=== PATIENT | female | born 1955 | race Caucasian/White ===

== ENCOUNTER 2019-03-16 14:58 | Emergency (ER) | payer BC ==
--- NOTE | 2019-03-16 15:46 | EDM.PDOC ---
ED HPI GENERAL MEDICAL PROBLEM - General Chief Complaint: Laceration Stated Complaint: L ARIELBROW LAC/WRIST INJRY Time Seen by Provider: 03/16/19 15:18 Source of Information: Reports: Patient, RN Notes Reviewed History Limitations: Reports: No Limitations - History of Present Illness INITIAL COMMENTS - FREE TEXT/NARRATIVE: Patient is a 63-year-old female who presents to the ED for evaluation of a head and wrist injury. The patient notes around 15 minutes prior to arrival to the ED, she was at a retail store picking up some parts and was loading stuff into her vehicle. She states that she was not watching where she was walking, and ended up stumbling over the cement parking stop in the parking lot. She states that she fell down and hit her head really hard on the left side of her face. She has a small scrape to the distal portion of her left eyebrow, and her left wrist hurts, and has a small abrasion to the left knee as well. The patient denies any loss of consciousness, but noted that she did have a headache at first but this is since subsided. She was able to get up by herself and drove herself to the ER. She does take 2 baby aspirin daily as advised by her primary care doctor. She is able to move her left wrist in all range of motion , and she notes that she has a history of carpal tunnel, but notes that the pain feels different than her normal usual pain that she experiences a regular basis. Left Knee Pain Score (Numeric/FACES): 3 Left Hand Pain Score (Numeric/FACES): 3 Left Eye Pain Score (Numeric/FACES): 1 - Related Data Allergies Allergy/AdvReac Type Severity Reaction Status Date / Time amoxicillin Allergy Rash Verified 03/16/19 15:10 morphine Allergy Nausea and Verified 03/16/19 15:10 Vomiting Home Meds: Home Meds . [No Known Home Meds] 03/16/19 [History] Aspirin [Halfprin] 162 mg PO DAILY 03/16/19 [History] Montelukast Sodium [Singulair] 10 mg PO DAILY 03/16/19 [History] Simvastatin [Zocor] 0 mg PO DAILY 03/16/19 [History] Past Medical History Cardiovascular History: Reports: High Cholesterol, Hypertension - Past Surgical History HEENT Surgical History: Reports: Adenoidectomy, Tonsillectomy Cardiovascular Surgical History: Reports: Other (See Below) Other Cardiovascular Surgeries/Procedures: angiogram GI Surgical History: Reports: Cholecystectomy Musculoskeletal Surgical History: Reports: Carpal Tunnel Social & Family History - Tobacco Use Smoking Status *Q: Never Smoker - Caffeine Use Caffeine Use: Reports: Coffee - Recreational Drug Use Recreational Drug Use: No ED ROS GENERAL - Review of Systems Review Of Systems: See Below Constitutional: Reports: No Symptoms HEENT: Denies: Vertigo, Vision Change Respiratory: Reports: No Symptoms Cardiovascular: Reports: No Symptoms, Palpitations Endocrine: Reports: No Symptoms GI/Abdominal: Reports: No Symptoms : Reports: No Symptoms Musculoskeletal: Reports: No Symptoms Skin: Reports: Wound (superificial wound to L lateral eyebrow) Neurological: Denies: Confusion, Dizziness, Headache, Syncope, Difficulty Walking Psychiatric: Reports: No Symptoms Hematologic/Lymphatic: Reports: No Symptoms Immunologic: Reports: No Symptoms ED EXAM, SKIN/RASH Exam: See Below Exam Limited By: No Limitations General Appearance: Alert, WD/WN, No Apparent Distress Eye Exam: Bilateral Eye: EOMI, Normal Inspection, PERRL Ears: Normal External Exam, Normal TMs Nose: Normal Inspection Throat/Mouth: Normal Inspection, Normal Lips, Normal Teeth, Normal Gums, Normal Oropharynx, Normal Voice, No Airway Compromise Head: Normocephalic, Other (wound to L lateral eyebrow) Neck: Normal Inspection, Supple, Non-Tender, Full Range of Motion Respiratory/Chest: No Respiratory Distress, Lungs Clear, Normal Breath Sounds, No Accessory Muscle Use, Chest Non-Tender Cardiovascular: Normal Peripheral Pulses, Regular Rate, Rhythm, No Murmur Peripheral Pulses: 3+: Radial (L), Radial (R) Extremities: Normal Inspection, Normal Range of Motion, Normal Capillary Refill , Other (pain with opposition of left thumb ) Neurological: Alert, Oriented, Normal Cognition, Normal Gait, No Motor/Sensory Deficits Psychiatric: Normal Affect, Normal Mood Skin: Warm, Dry, Normal Color, No Rash, Wound/Incision (to left lateral eyebrow : small 0.5cm, stellate in nature and superficial. to L Knee: small skin abrasion noted Left lateral knee. no active bleeding.) Course - Vital Signs Last Recorded V/S: Last Vital Signs Temp 98.0 F 03/16/19 15:15 Pulse 72 03/16/19 15:15 Resp 20 03/16/19 15:15 BP 145/88 H 03/16/19 15:15 Pulse Ox 99 03/16/19 15:15 - Orders/Labs/Meds Orders: Active Orders 24 hr Category Date Time Status Head wo Cont [CT] Stat Exams 03/16/19 15:38 Ordered Wrist Comp Min 3V Lt [CR] Stat Exams 03/16/19 15:37 Ordered - Re-Assessments/Exams Free Text/Narrative Re-Assessment/Exam: 03/16/19 15:50 Patient presents to the ED for the evaluation of a head injury and left wrist injury. Due to the patient being on baby aspirin and her stating that she had quite a hard fall I have ordered a head CT for further evaluation, and a left wrist x-ray to make sure that her left wrist does not have a fracture. 03/16/19 16:17 Patient's left wrist x-ray does not demonstrate any acute fracture or abnormality at this time, this was reviewed by myself and Dr. Stephenson. The patient's head CT is read as no acute intracranial abnormalities at this time. There is no evidence of any head bleed. This will be relayed to the patient with other general recommendations. Departure - Departure Time of Disposition: 16:18 Disposition: Home, Self-Care 01 Condition: Fair Clinical Impression: Left wrist pain Head injury Qualifiers: Encounter type: initial encounter Qualified Code(s): S09.90XA - Unspecified injury of head, initial encounter - Discharge Information *PRESCRIPTION DRUG MONITORING PROGRAM REVIEWED*: No *COPY OF PRESCRIPTION DRUG MONITORING REPORT IN PATIENT ISAAC: No Instructions: Head Injury, Adult, [id number], Stitches, Donna, or Adhesive Wound Closure, [id number] Referrals: Tramaine Lerma MD [Primary Care Provider] - Forms: ED Department Discharge Additional Instructions: You have been evaluated in the ED today for your head injury and left wrist injury. There is no sign of any acute bony abnormality or fracture of your left wrist, and there was no evidence of any sort of head bleed on your head CT. You will likely feel sore for the next few days, you may take Tylenol 500 mg or 6 hours as needed for pain relief. Please keep your wounds clean and dry. Return to the ED if your symptoms change or worsen. - My Orders Last 24 Hours: My Active Orders 03/16/19 15:37 Wrist Comp Min 3V Lt [CR] Stat 03/16/19 15:38 Head wo Cont [CT] Stat - Assessment/Plan Last 24 Hours: My Active Orders 03/16/19 15:37 Wrist Comp Min 3V Lt [CR] Stat 03/16/19 15:38 Head wo Cont [CT] Stat
--- NOTE | 2019-03-18 19:35 | CR ---
Left wrist: Four views of the left wrist were obtained. Comparison: No prior wrist exam. Mild degenerative change is noted within the CMC joint of the thumb. Joint spaces within the wrist are otherwise preserved. No acute fracture, dislocation or other bony abnormality is identified. Impression: 1. Mild degenerative change as noted above. 2. Nothing acute is appreciated on left wrist exam. Diagnostic code #2
--- NOTE | 2019-03-18 19:35 | CT ---
Head CT Technique: Multiple axial sections through the brain were obtained. Intravenous contrast was not utilized. Comparison: No prior intracranial imaging is available. Findings: Ventricles along with basal cisterns and sulci over the convexities are within normal limits for the patient's age. No abnormal parenchymal densities are seen. No evidence of intracranial hemorrhage. No midline shift or mass effect is seen. Bone window settings were reviewed which show no acute calvarial abnormality. Visualized sinuses are clear. Impression: 1. Nothing acute is appreciated on noncontrast head CT exam. Diagnostic code #1 I agree with preliminary report from [facility], finalized on 03/16/19, 5:10 PM Central Time
== END 2019-03-16 16:38 | disposition home or self-care (01) ==
LOC: JD.ED 14:58
DX: S01.112A Laceration without foreign body of left eyelid and periocular area, initial encounter (principal); S80.212A Abrasion, left knee, initial encounter; M25.532 Pain in left wrist; I10 Essential (primary) hypertension; E78.00 Pure hypercholesterolemia, unspecified; Z88.1 Allergy status to other antibiotic agents; Z88.5 Allergy status to narcotic agent; W22.8XXA Striking against or struck by other objects, initial encounter; Y92.481 Parking lot as the place of occurrence of the external cause
CPT/HCPCS: 12011; 70450; 70450-26; 73110-26-LT; 73110-LT; 99283; 99283-25

== ENCOUNTER 2021-06-27 13:17 | Emergency (ER) | payer MEDICARE, BC ==
--- NOTE | 2021-06-27 13:35 | EDM.PDOC ---
ED HPI GENERAL MEDICAL PROBLEM - General Chief Complaint: Respiratory Problem Stated Complaint: COVID SX Time Seen by Provider: 06/27/21 13:31 - History of Present Illness INITIAL COMMENTS - FREE TEXT/NARRATIVE: 66-year-old female presents the emergency room with Covid symptoms. Patient said several day history of just feeling really poor achy all over lumbar chest like pressure and shortness of breath. This is been going on for several days. Patient has not had the Covid vaccine. She is got a significant past medical history of needing a heart work-up for dyspnea on exertion however with the onset of Covid a little over a year and a half ago she never got this done. She is treated for hypertension hyperlipidemia no history of diabetes she is got a significant 2 pack a day smoking history however she quit in 2004. She denies chest pressure at this time just has a vague ache but this seems to be all over. She is noted to be hypoxic with O2 saturation as low as 87% on room air upon admission to the emergency room. Headache Pain Score (Numeric/FACES): 10 - Related Data Allergies Allergy/AdvReac Type Severity Reaction Status Date / Time amoxicillin Allergy Severe Rash Verified 06/27/21 17:46 morphine Allergy Severe Nausea and Verified 06/27/21 17:46 Vomiting Home Meds: Home Meds Aspirin [Halfprin] 162 mg PO DAILY 03/16/19 [History] Montelukast Sodium [Singulair] 10 mg PO DAILY 03/16/19 [History] Albuterol Sulfate [Albuterol Sulfate HFA] 8.5 gm INH Q4H #1 ea 06/27/21 [Rx] Losartan/Hydrochlorothiazide [Losartan-HCTZ 100-25 MG] 1 each PO DAILY 06/27/21 [History] atorvaSTATin [Lipitor] 40 mg PO DAILY 06/27/21 [History] dexAMETHasone [Dexamethasone] 6 mg PO DAILY #14 tablet 06/27/21 [Rx] Past Medical History Cardiovascular History: Reports: High Cholesterol, Hypertension - Past Surgical History HEENT Surgical History: Reports: Adenoidectomy, Tonsillectomy Cardiovascular Surgical History: Reports: Other (See Below) Other Cardiovascular Surgeries/Procedures: angiogram GI Surgical History: Reports: Cholecystectomy Musculoskeletal Surgical History: Reports: Carpal Tunnel Social & Family History - Caffeine Use Caffeine Use: Reports: Coffee ED ROS GENERAL - Review of Systems Review Of Systems: See Below Constitutional: Reports: Fever, Chills, Malaise, Weakness, Fatigue. Denies: Night Sweats HEENT: Reports: Rhinitis Respiratory: Reports: Shortness of Breath, Cough. Denies: Pleuritic Chest Pain Cardiovascular: Reports: Other (Little bit of pressure just does not feel right). Denies: Chest Pain GI/Abdominal: Reports: No Symptoms : Reports: No Symptoms Musculoskeletal: Reports: Other (Achy all over) Skin: Reports: No Symptoms ED EXAM, GENERAL - Physical Exam Exam: See Below Exam Limited By: No Limitations General Appearance: Alert, No Apparent Distress, Other (O2 saturation 88% when I went into her room it would drop a little bit with talking) Eye Exam: Bilateral Eye: Normal Inspection Ears: Normal External Exam, Normal Canal, Hearing Grossly Normal, Normal TMs Nose: Normal Inspection, Normal Mucosa, No Blood Throat/Mouth: Normal Inspection, Normal Lips, Normal Teeth, Normal Gums, Normal Oropharynx, Normal Voice, No Airway Compromise Head: Atraumatic, Normocephalic Neck: Normal Inspection, Supple, Non-Tender, Full Range of Motion. No: Lymphadenopathy (L), Lymphadenopathy (R) Respiratory/Chest: No Respiratory Distress, Lungs Clear Cardiovascular: Regular Rate, Rhythm, No Edema, No Murmur GI/Abdominal: Normal Bowel Sounds, Soft, Non-Tender #1 Interpretation EKG Date: 06/27/21 Rhythm: NSR [place]: Normal P-Wave: Present QRS: LBBB ST-T: Other (Normal disconcordant changes associated with left bundle branch block) QT: Normal Comparison: NA - No Prior EKG EKG Interpretation Comments: Abnormal EKG Course - Vital Signs Last Recorded V/S: Last Vital Signs Temp 37.2 C 06/27/21 13:45 Pulse 87 06/27/21 13:45 Resp 20 06/27/21 13:45 BP 127/98 H 06/27/21 13:45 Pulse Ox 98 06/27/21 15:10 - Orders/Labs/Meds Orders: Active Orders 24 hr Category Date Time Status IS (RT) [RT Incentive Spirometry] [RC] Q1HWA Care 06/27/21 17:57 Active RT Chest Physiotherapy [RC] ASDIRECTED Care 06/27/21 17:57 Active RT Post Treatment Assessment [RC] Click to Edit Care 06/27/21 17:58 Active RT Pre-Treatment Assessment [RC] Click to Edit Care 06/27/21 17:58 Active Chest 1V Frontal [CR] Stat Exams 06/27/21 14:16 Taken Albuterol [Proventil HFA] Med 06/27/21 18:00 Active See Dose Instructions INH Q4H Medication Orders Albuterol (Albuterol 6.7 Gm Inhaler) 0 gm INH Q4H NATE Labs: Laboratory Tests 06/27/21 06/27/21 06/27/21 Range/Units 13:50 14:34 14:34 WBC 5.20 (3.98-10.04) K/mm3 RBC 4.79 (3.98-5.22) M/mm3 Hgb 13.9 (11.2-15.7) gm/dl Hct 42.0 (34.1-44.9) % MCV 87.7 (79.4-94.8) fl MCH 29.0 (25.6-32.2) pg MCHC 33.1 (32.2-35.5) g/dl RDW Std Deviation 42.0 (36.4-46.3) fL Plt Count 230 (182-369) K/mm3 MPV 9.2 L (9.4-12.3) fl Neut % (Auto) 74.2 H (34.0-71.1) % Lymph % (Auto) 14.6 L (19.3-51.7) % [place] % (Auto) 10.8 (4.7-12.5) % Eos % (Auto) 0 L (0.7-5.8) Baso % (Auto) 0.2 (0.1-1.2) % Neut # (Auto) 3.86 (1.56-6.13) K/mm3 Lymph # (Auto) 0.76 L (1.18-3.74) K/mm3 [place] # (Auto) 0.56 H (0.24-0.36) K/mm3 Eos # (Auto) 0.00 L (0.04-0.36) K/mm3 Baso # (Auto) 0.01 (0.01-0.08) K/mm3 D-Dimer, Quantitative 1.35 H (0.19-0.50) mg/L Sodium (136-145) mEq/L Potassium (3.5-5.1) mEq/L Chloride (98-107) mEq/L Carbon Dioxide (21-32) mEq/L Anion Gap (5-15) BUN (7-18) mg/dL Creatinine (0.55-1.02) mg/dL Est Cr Clr Drug Dosing mL/min Estimated GFR (MDRD) (>60) mL/min BUN/Creatinine Ratio (14-18) Glucose (70-99) mg/dL Calcium (8.5-10.1) mg/dL Ferritin (8-252) ng/ml Total Bilirubin (0.2-1.0) mg/dL AST (15-37) U/L ALT (14-59) U/L Alkaline Phosphatase (46-116) U/L Lactate Dehydrogenase (81-234) U/L Troponin I (0.00-0.056) ng/mL C-Reactive Protein (<1.0) mg/dL Total Protein (6.4-8.2) g/dl Albumin (3.4-5.0) g/dl Globulin gm/dL Albumin/Globulin Ratio (1-2) SARS-CoV-2 RNA (ELIECER) Positive H (NEGATIVE) 06/27/21 06/27/21 Range/Units 14:34 14:34 WBC (3.98-10.04) K/mm3 RBC (3.98-5.22) M/mm3 Hgb (11.2-15.7) gm/dl Hct (34.1-44.9) % MCV (79.4-94.8) fl MCH (25.6-32.2) pg MCHC (32.2-35.5) g/dl RDW Std Deviation (36.4-46.3) fL Plt Count (182-369) K/mm3 MPV (9.4-12.3) fl Neut % (Auto) (34.0-71.1) % Lymph % (Auto) (19.3-51.7) % [place] % (Auto) (4.7-12.5) % Eos % (Auto) (0.7-5.8) Baso % (Auto) (0.1-1.2) % Neut # (Auto) (1.56-6.13) K/mm3 Lymph # (Auto) (1.18-3.74) K/mm3 [place] # (Auto) (0.24-0.36) K/mm3 Eos # (Auto) (0.04-0.36) K/mm3 Baso # (Auto) (0.01-0.08) K/mm3 D-Dimer, Quantitative (0.19-0.50) mg/L Sodium 138 (136-145) mEq/L Potassium 3.1 L (3.5-5.1) mEq/L Chloride 102 (98-107) mEq/L Carbon Dioxide 30 (21-32) mEq/L Anion Gap 9.1 (5-15) BUN 13 (7-18) mg/dL Creatinine 0.5 L (0.55-1.02) mg/dL Est Cr Clr Drug Dosing 92.79 mL/min Estimated GFR (MDRD) > 60 (>60) mL/min BUN/Creatinine Ratio 26.0 H (14-18) Glucose 103 H (70-99) mg/dL Calcium 8.3 L (8.5-10.1) mg/dL Ferritin 575 H (8-252) ng/ml Total Bilirubin 0.6 (0.2-1.0) mg/dL AST 35 (15-37) U/L ALT 26 (14-59) U/L Alkaline Phosphatase 40 L (46-116) U/L Lactate Dehydrogenase 357 H (81-234) U/L Troponin I < 0.017 (0.00-0.056) ng/mL C-Reactive Protein 10.4 H* (<1.0) mg/dL Total Protein 6.8 (6.4-8.2) g/dl Albumin 3.1 L (3.4-5.0) g/dl Globulin 3.7 gm/dL Albumin/Globulin Ratio 0.8 L (1-2) SARS-CoV-2 RNA (ELIECER) (NEGATIVE) Meds: Medications Generic Name Dose Route Start Last Admin Trade Name Freq PRN Reason Stop Dose Admin Albuterol 0 gm 06/27/21 18:00 Albuterol 6.7 Gm Inhaler INH Q4H NATE Discontinued Medications Generic Name Dose Route Start Last Admin Trade Name Freq PRN Reason Stop Dose Admin Dexamethasone 6 mg 06/27/21 17:56 Dexamethasone 4 Mg/Ml Sdv IVPUSH 06/27/21 17:57 ONETIME ONE Dexamethasone 6 mg 06/27/21 18:02 Dexamethasone 4 Mg Tab PO 06/27/21 18:03 ONETIME ONE Potassium Chloride 40 meq 06/27/21 16:48 06/27/21 16:56 Potassium Chloride 20 Meq Tab.Er PO 06/27/21 16:49 40 meq ONETIME ONE Administration - Re-Assessments/Exams Free Text/Narrative Re-Assessment/Exam: 06/27/21 17:56 Patient requires supplemental oxygen. She does have Covid she does not wish to be transferred and would rather go home on supplemental oxygen. We will give a dose of dexamethasone instructed on the use of IS Acapella and how to use an albuterol MDI Departure - Departure Time of Disposition: 18:07 Disposition: Home, Self-Care 01 Clinical Impression: Pneumonia due to COVID-19 virus, Hypoxia - Discharge Information Referrals: Tramaine Lerma MD [Primary Care Provider] - Forms: ED Department Discharge Additional Instructions: Return to the emergency room with any questions problems or worsening symptoms. He will use an albuterol inhaler 2 puffs every 4 hours while awake. Be sure and use the spacer with this. You will also take 6 mg of dexamethasone every morning. Your first dose was given this evening here in the emergency room but from here on out take it first thing in the morning when you get up. To 1-1/2 of the 4 mg tablets. Both of these prescriptions were sent to the [place] [facility] in the [employer] [facility]. Do the incentive spirometry and the Acapella as directed by respiratory therapy. Social isolation for 12 days after the onset of symptoms.. Sepsis Event Note (ED) - Focused Exam Vital Signs: Vital Signs Temp Pulse Resp BP Pulse Ox Pulse Ox 06/27/21 15:10 98 06/27/21 14:56 97 06/27/21 13:45 37.2 C 87 20 127/98 H 90 L - My Orders Last 24 Hours: My Active Orders 06/27/21 14:16 Chest 1V Frontal [CR] Stat 06/27/21 17:57 IS (RT) [RT Incentive Spirometry] [RC] Q1HWA RT Chest Physiotherapy [RC] ASDIRECTED 06/27/21 17:58 RT Post Treatment Assessment [RC] Click to Edit RT Pre-Treatment Assessment [RC] Click to Edit 06/27/21 18:00 Albuterol [Proventil HFA] See Dose Instructions INH Q4H - Assessment/Plan Last 24 Hours: My Active Orders 06/27/21 14:16 Chest 1V Frontal [CR] Stat 06/27/21 17:57 IS (RT) [RT Incentive Spirometry] [RC] Q1HWA RT Chest Physiotherapy [RC] ASDIRECTED 06/27/21 17:58 RT Post Treatment Assessment [RC] Click to Edit RT Pre-Treatment Assessment [RC] Click to Edit 06/27/21 18:00 Albuterol [Proventil HFA] See Dose Instructions INH Q4H
[2021-06-27] MEDS ORDERED: Potassium Chloride 20 MEQ Tab.ER PO ONE (16:48)
[2021-06-27] MEDS ORDERED: Dexamethasone 4 MG/ML SDV IVPUSH ONE (17:56)
[2021-06-27] MEDS ORDERED: Albuterol 6.7 GM Inhaler INH SCH (18:00)
[2021-06-27] MEDS ORDERED: Dexamethasone 4 MG Tab PO ONE (18:02)
--- NOTE | 2021-06-28 16:39 | CR ---
Chest: Frontal view of the chest was obtained. Comparison: No prior chest imaging is available. Heart is enlarged. Upper mediastinum is normal. Patchy areas of increased density are seen within both lung bases. Lungs otherwise are clear. Bony structures show osteopenia. Minimal degenerative change is partially seen within the spine. Impression: 1. Patchy increased density within both lung bases. Please correlate if patient is COVID positive to represent COVID pneumonia. 2. Cardiomegaly. Diagnostic code #3
== END 2021-06-27 18:39 | disposition home or self-care (01) ==
LOC: JD.ED 13:17
DX: U07.1 COVID-19 (principal); J12.82 Pneumonia due to coronavirus disease 2019; E78.00 Pure hypercholesterolemia, unspecified; I10 Essential (primary) hypertension; Z88.5 Allergy status to narcotic agent; Z79.82 Long term (current) use of aspirin; Z79.899 Other long term (current) drug therapy; R06.02 Shortness of breath
CPT/HCPCS: 36415; 71045; 80053; 82728; 83615; 84484; 85025; 85379; 86140; 93005; 94640; 94667; 99285; A9270; J8540; U0002; 93010; 99284

== ENCOUNTER 2025-04-17 07:15 | Day surgery (SDC) | payer MEDICARE ==
[~2025-04-17 07:15] MED LIST: Sodium Chloride 0.9% 10 ML Syringe FLUSH PRN; Sodium Chloride 0.9% 10 ML Syringe FLUSH SCH
[2025-04-17] MEDS ORDERED: Propofol 200 MG/20 ML SDV ONE (07:29)
[2025-04-17] MEDS: Lactated Ringers 1,000 ML IV SCH (07:40)
[2025-04-17] MEDS ORDERED: Ketamine HCL/NACL, ISO-OSM 50 MG/5 ML Syringe ONE (08:17)
[2025-04-17] MEDS ORDERED: dexmedeTOMIDine HCl 200 MCG/2 ML SDV ONE (08:31)
== END 2025-04-17 09:50 | disposition home or self-care (01) ==
LOC: JD.SDS 07:15
PROVIDERS: ATTEND Surgery
DX: Z12.11 Encounter for screening for malignant neoplasm of colon (principal); K63.89 Other specified diseases of intestine; K57.30 Diverticulosis of large intestine without perforation or abscess without bleeding; K64.8 Other hemorrhoids; I10 Essential (primary) hypertension; J44.9 Chronic obstructive pulmonary disease, unspecified; E78.5 Hyperlipidemia, unspecified; Z88.0 Allergy status to penicillin; Z88.8 Allergy status to other drugs, medicaments and biological substances; Z86.0101 Personal history of adenomatous and serrated colon polyps; Z87.891 Personal history of nicotine dependence; Z79.51 Long term (current) use of inhaled steroids; Z79.899 Other long term (current) drug therapy; Z79.82 Long term (current) use of aspirin
CPT/HCPCS: 45380; J2704; J7120; 00811; 88305; J3490